=== PATIENT | female | born 1965 | race Caucasian/White ===

== ENCOUNTER → 2019-01-22 | Outpatient (CLI) | payer OTHER ==
--- NOTE | 2019-01-22 16:38 | EXE ---
[place] [address] STRESS ECHOCARDIOGRAM Name: GRAYOCTOBER PRITI Room: [facility] RoShu#: [id number] Admission: 01/22/19 Attend Phys: Remi Knutson, Discharge: Date of : 65 Date of Service: 01/22/19 1637 Report #: [id number] THIS REPORT FOR: //name// APPROVED REPORT Study performed: 01/22/2019 15:23:46 Exam: Stress Echocardiogram Indication: Abnormal EKG Patient Location: Out-Patient Stress Nurse: Gabby Melendez RN Supervising Physician: Humble Viera MD Ht: 5 ft 2 in HR: 70 bpm BP: 139/94 mmHg Medical History Cardiac Risk Factors: HTN, FHX of CAD Procedure The patient underwent an Exercise Stress Test using the Brandon Protocol. Blood pressure, heart rate, and EKG were monitored. An Echocardiogram was performed by finishing lab technician in four stages in quad fashion. At peak stress, four selected images were obtained and placed side by side with resting images for comparison. Stress Test Details Stress Test: Exercise stress testing was performed using a Brandon protocol. HR Resting HR: 70 bpm Max Heart Rate (APMHR): 167 bpm Max HR Achieved: 169 bpm Target HR (85% APMHR): 141 bpm % of APMHR: 101 Recovery HR: 90 bpm HR response to stress: Normal HR response to stress BP Resting BP: 139/94 mmHg Max BP: 199/95 mmHg Recovery BP: 130/83 mmHg BP response to stress: Normal blood pressure response to stress. ECG Resting ECG: Sinus Rhythm Stress ECG: [place] [address] STRESS ECHOCARDIOGRAM Name: JACQUIE GRAY Room: [facility]#: [id number] Admission: 01/22/19 Attend Phys: Remi Knutson, Discharge: Date of : 65 Date of Service: 01/22/19 1637 Report #: [id number] ST Change: None Arrhythmia: None Recovery ECG: Sinus Rhythm Recovery ST Change: None Recovery Arrhythmia: None Clinical Reason for Termination: Completed protocol Exercise duration: 6 min 26 sec Highest Stage Achieved: Stage 3: 3.4 mph at 14% grade. Exercise capacity: 7.69 METs The patient tolerated standard Brandon protocol exercise without significant symptoms. Stress ECG Conclusion The baseline 12-lead EKG shows sinus rhythm with no significant ST or T-wave abnormalities. EKGs during and post exercise showed sinus rhythm and sinus tachycardia with no significant ST or T wave changes when compared to baseline. There were no significant stress-induced arrhythmias. Pre-Stress Echo The resting Echocardiogram showed normal left ventricular contractility with an estimated Ejection Fraction of about 60-65%. There was normal global LV systolic function with no evidence of wall motion abnormality. Post-Stress Echo The stress Echocardiogram showed normal left ventricular contractility with an estimated Ejection Fraction of about >70%. With exercise stress there is normal augmentation of left ventricular systolic function with no evidence of stress-induced wall motion of normality. Conclusion Clinical Response: Non-ischemic Exercise Capacity: Average Stress ECG Response: Non-ischemic Stress Echo Images: [place] [address] STRESS ECHOCARDIOGRAM Name: MARINAOCTOBER PRITI Room: [facility]#: [id number] Admission: 01/22/19 Attend Phys: Remi Knutson, Discharge: Date of : 65 Date of Service: 01/22/191636 Report #: [id number] Other Information Study Quality: Good <ELECTRONICALLY SIGNED> By: Remi Knutson MD, FACC 01/22/191636 36 36 Remi Knutson MD, FACC /INF
== END ==
LOC: M.CRD 14:55
DX: R94.31 Abnormal electrocardiogram [ECG] [EKG] (principal)